=== PATIENT | female | born 1960 | race Caucasian/White ===

== ENCOUNTER 2016-11-16 01:36 | Inpatient (IN) | payer OTHER ==
[~2016-11-16] VITALS: Ht 175.3 cm; Wt 131.0 kg
[~2016-11-16 01:36] MED LIST: FURO20TA3 PO; IRBE300T16 PO; POTA10TA11 PO
[2016-11-16] MEDS ORDERED: HYDROmorphone 1 MG/ML, 1ML ONE ×2 (02:04→02:55)
[2016-11-16] MEDS ORDERED: ONDANSETRON 2MG/ML, 2ML ONE ×3 (02:04→14:22)
[2016-11-16] MEDS ORDERED: SODIUM CHLORIDE FLUSH 10ML SYR IVF ONE (02:30)
[2016-11-16] MEDS ORDERED: HYDROmorphone 1 MG/ML, 1ML IVPush PRN (02:30)
[2016-11-16] MEDS ORDERED: ONDANSETRON 2MG/ML, 2ML IVPush ONE ×2 (02:30→03:00)
[2016-11-16] MEDS ORDERED: SODIUM CHLORIDE 0.9% 1,000ML IV ONE (02:30)
[2016-11-16 02:42] LABS: ASPARTATE AMINO TRANSFERASE 15 U/L (15-37); BLOOD UREA NITROGEN 21 mg/dL (7-18)
[2016-11-16] MEDS ORDERED: LOSA25TA5 PO (02:52)
[2016-11-16] MEDS ORDERED: PROMETHAZINE 25 MG/ML, 1ML ONE (03:21)
[2016-11-16] MEDS ORDERED: PROMETHAZINE 25 MG/ML, 1ML IM ONE (03:30)
[2016-11-16] MEDS ORDERED: SODIUM CHLORIDE 0.9% 1,000 ML IV SCH (05:12)
[2016-11-16 05:30] VITALS: BP 159/86
[2016-11-16] MEDS ORDERED: ONDANSETRON ODT 4 MG PO PRN (05:30)
[2016-11-16] MEDS ORDERED: DOCUSATE 100 MG CAPSULE PO PRN (05:30)
[2016-11-16] MEDS ORDERED: TRAZODONE 50MG TABLET PO PRN (05:30)
[2016-11-16] MEDS ORDERED: BISACODYL 10 MG SUPP PR PRN (05:30)
[2016-11-16] MEDS ORDERED: LABETALOL 5MG/ML, 20ML IVPush PRN (05:30)
[2016-11-16] MEDS ORDERED: POLYETHYLENE GLYCOL 17 GM PACKET PO PRN (05:30)
[2016-11-16] MEDS ORDERED: HEPARIN 5,000 UNITS/ML, 1ML SQ SCH (05:30)
[2016-11-16 06:16] VITALS: BP 159/86
[2016-11-16 08:41] VITALS: BP 145/76
[2016-11-16] MEDS ORDERED: LOSARTAN 25MG TABLET PO SCH (09:00)
[2016-11-16] MEDS: D5%-0.45% NACL 1,000 ML IV SCH (09:44)
[2016-11-16] MEDS ORDERED: MIDAZOLAM 1 MG/ML, 2ML ONE (13:27)
[2016-11-16] MEDS ORDERED: FENTANYL PF 250 MCG/5ML ONE (13:27)
[2016-11-16] MEDS ORDERED: METOCLOPRAMIDE 5 MG/ML, 2ML ONE (14:22)
[2016-11-16] MEDS ORDERED: CEFAZOLIN 1,000 MG ONE (14:22)
[2016-11-16] MEDS ORDERED: EPHEDRINE 50 MG/ML, 1ML ONE (14:22)
[2016-11-16] MEDS ORDERED: PROPOFOL 10 MG/ML, 50ML ONE (14:22)
[2016-11-16] MEDS ORDERED: DEXAMETHASONE 4 MG/ML, 1ML ONE (14:22)
[2016-11-16] MEDS ORDERED: SUCCINYLCHOLINE 20 MG/ML, 10ML ONE (14:22)
[2016-11-16] MEDS ORDERED: FENTANYL PF 100 MCG/2ML IV PRN (14:30)
[2016-11-16] MEDS ORDERED: PROMETHAZINE 25 MG/ML, 1ML IV PRN (14:30)
[2016-11-16] MEDS ORDERED: ACETAMINOPHEN 325 MG TABLET PO PRN (14:30)
[2016-11-16] MEDS ORDERED: OXYcodone 5 MG/5 ML ORAL.SOL UDC PO PRN (14:30)
[2016-11-16] MEDS ORDERED: OMNIPAQUE 350 MG/ML, 50 ML BOTTLE ONE (15:13)
[2016-11-16 16:40] VITALS: BP 149/64
[2016-11-16] MEDS: morphine SULFATE 10 MG/ML, 1ML IVPush PRN (17:22)
[2016-11-16 20:50] VITALS: BP 145/73
[2016-11-17] MEDS: D5%-0.45% NACL 1,000 ML IV SCH (01:12)
[2016-11-17 02:55] VITALS: BP 143/80
[2016-11-17] MEDS: morphine SULFATE 10 MG/ML, 1ML IVPush PRN (03:13)
[2016-11-17 05:06] LABS: BLOOD UREA NITROGEN 17 mg/dL (7-18)
[2016-11-17 07:45] VITALS: BP 140/74
[2016-11-17] MEDS ORDERED: TRAM-28 PO (10:12)
[2016-11-17] MEDS ORDERED: ONDA4TAB10 PO (10:12)
== END 2016-11-17 11:30 | disposition home or self-care (01) | DRG 669 ==
LOC: ED 02:32 → EDIP 04:36 → 4NOR 05:38 → DCLOUNGE 11-17 11:10
PROVIDERS: ADMIT Internal Medicine; ATTEND Internal Medicine
PROC: 0T9B70Z Drainage of Bladder with Drainage Device, Via Natural or Artificial Opening (ICD-10-PCS; 2016-11-16)
PROC: BT1D1ZZ Fluoroscopy of Right Kidney, Ureter and Bladder using Low Osmolar Contrast (ICD-10-PCS; 2016-11-16)
PROC: 0TC68ZZ Extirpation of Matter from Right Ureter, Via Natural or Artificial Opening Endoscopic (ICD-10-PCS; principal; 2016-11-16 14:00)
DX: N13.2 Hydronephrosis with renal and ureteral calculous obstruction (principal); I13.0 Hypertensive heart and chronic kidney disease with heart failure and stage 1 through stage 4 chronic kidney disease, or unspecified chronic kidney disease; K80.10 Calculus of gallbladder with chronic cholecystitis without obstruction; C64.1 Malignant neoplasm of right kidney, except renal pelvis; E66.01 Morbid (severe) obesity due to excess calories; I50.9 Heart failure, unspecified; N18.9 Chronic kidney disease, unspecified; K82.8 Other specified diseases of gallbladder; G43.909 Migraine, unspecified, not intractable, without status migrainosus; R16.0 Hepatomegaly, not elsewhere classified; R39.15 Urgency of urination; Z82.0 Family history of epilepsy and other diseases of the nervous system; Z82.5 Family history of asthma and other chronic lower respiratory diseases
CPT/HCPCS: 36415; 74176; 74420; 76700; 80048; 80053; 81001; 83690; 84703; 85025; 87086; 93005; 96361; 96372; 96374; 96375; 96376; C1726; J0690; J1100; J1170; J1644; J2250; J2405; J2550; J2704; J3010; Q0162; Q9967; C1758; J0330; J2270; J2765; J7030

== ENCOUNTER → 2017-09-21 | Outpatient (CLI) | payer OTHER ==
[~2017-09-21] MED LIST changes: +LOSA25TA5 PO; +ONDA4TAB10 PO; +TRAM-47 PO
== END ==
LOC: CFH 07:14
PROVIDERS: ATTEND Genetic Counselor, MS
DX: Z12.31 Encounter for screening mammogram for malignant neoplasm of breast (principal); K80.20 Calculus of gallbladder without cholecystitis without obstruction; Z90.5 Acquired absence of kidney; Z80.3 Family history of malignant neoplasm of breast
CPT/HCPCS: 76700; 77063; 77067